=== PATIENT | female | born 1975 | race African-American/Black ===

== ENCOUNTER 2018-08-09 12:37 | Day surgery (SDC) | payer OTHER ==
[~2018-08-09] VITALS: Ht 175.3 cm; Wt 143.9 kg
[2018-08-09] MEDS ORDERED: ALLEGRA 60MG TA60 MG PO (13:05)
[2018-08-09] MEDS ORDERED: HAIRSKINNAILS PO (13:05)
[2018-08-09 13:16] VITALS: BP 127/82; PULSE 66; TEMP 97
[2018-08-09 14:25] VITALS: BP 121/78; PULSE 76; TEMP 97
--- NOTE | 2018-08-09 14:25 | NUR ---
The patient ambulates to the chair with a steady gait. The patient's vital signs are stable. Report is obtained. The patient requests ice and a muffin which are brought to her at this time. The call light is within reach and the patient's is at the bedside. Will continue to monitor.
[2018-08-09 14:40] VITALS: BP 122/80; PULSE 77
--- NOTE | 2018-08-09 14:40 | NUR ---
The patient's vital signs are stable. The patient tolerated the muffin and water and denies any complaints or concerns at this time. The call light is within reach and the patient's is at the bedside. Will continue to monitor.
[2018-08-09 14:55] VITALS: BP 133/85; PULSE 74
--- NOTE | 2018-08-09 14:55 | NUR ---
The patient's vital signs are stable. The patient denies any complaints or conerns at this time and is waiting on Dr. Maloney to talk to her before she is discharged. The call light is within reach and the patient's is at the bedside. Will continue to monitor.
[2018-08-09 15:10] VITALS: BP 130/78; PULSE 83
--- NOTE | 2018-08-09 15:10 | NUR ---
The patient's vital signs are stable. The patient has talked to Dr. Maloney and states she is ready to be discharged. The discharge instructions will be reviewed with the patient.
[2018-08-09 15:22] VITALS: BP 122/82; PULSE 72
--- NOTE | 2018-08-09 15:22 | NUR ---
The discharge instructions are reviewed with the patient and her by Lenora IQBAL and all questions are answered. The IV is removed and the tip is intact and a dressing is applied. The patient changes into her personal clothes to be discharged home.
--- NOTE | 2018-08-09 15:30 | NUR ---
The patient is wheeled to the patient entrance via wheelchair by Yen LYONS to be discharged home via personal vehicle by her . The patient is sent home with her discharge instructions and education packet.
== END 2018-08-09 15:30 | disposition home or self-care (01) ==
LOC: SDCO 12:37
DX: R19.7 Diarrhea, unspecified (principal); K21.0 Gastro-esophageal reflux disease with esophagitis; J45.909 Unspecified asthma, uncomplicated
CPT/HCPCS: J2250; J3010; J7030